=== PATIENT | female | born 2000 ===

== ENCOUNTER 2024-06-16 10:50 | Outpatient (CLI) ==
[~2024-06-16] VITALS: Ht 165.1 cm; Wt 122.0 kg
[2024-06-16 11:23] VITALS: BP 105/56; O2SAT 96
[2024-06-16] MEDS ORDERED: PRENTAB9 PO (11:33)
[2024-06-16] MEDS ORDERED: ZOFRAN PO (11:35)
[2024-06-16] MEDS ORDERED: diphenhydrAMINE 25MG CAP PO PRN (12:00)
[2024-06-16] MEDS ORDERED: OXYTOCIN DRIP 30 UNITS in IV 1 EA IV PRN (12:00)
[2024-06-16] MEDS ORDERED: TRANEXAMIC ACID INJection 1,000 MG in NS 100 ML IV PRN (12:00)
[2024-06-16] MEDS ORDERED: OXYTOCIN INJ 10UNITS/ML 1ML VIAL IM PRN (12:00)
[2024-06-16] MEDS ORDERED: ACETAMINOPHEN 325 MG TAB PO PRN (12:00)
[2024-06-16] MEDS ORDERED: DOCUSATE SODIUM 100MG CAPSULE PO PRN (12:00)
[2024-06-16] MEDS ORDERED: ONDANSETRON 4MG 2ML VIAL IV PRN (12:00)
[2024-06-16] MEDS ORDERED: LIDOCAINE 1% MDV 20ML VIAL INFIL PRN (12:00)
[2024-06-16] MEDS ORDERED: METHYLERGONOVINE MALEATE 0.2MG/ML 1ML VIAL IM PRN (12:00)
[2024-06-16] MEDS ORDERED: CARBOPROST TROMETHAMINE 250 MCG/ML AMP IM PRN (12:00)
[2024-06-16 12:02] VITALS: BP 91/55
[2024-06-16] MEDS ORDERED: BETAMETHASONE SOLUSPAN 6MG/ML 5ML VIAL IM SCH (12:30)
[2024-06-16] MEDS ORDERED: BETAMETHASONE SOLUSPAN 6MG/ML 5ML VIAL IM ONE (12:30)
[2024-06-16 15:19] VITALS: BP 98/56
[2024-06-16 21:04] VITALS: BP 97/52
[2024-06-17] MEDS: BETAMETHASONE SOLUSPAN 6MG/ML 5ML VIAL IM ONE (08:40)
== END 2024-06-17 13:30 | disposition home or self-care (01) ==
LOC: M LDO 10:50
PROVIDERS: ATTEND Advanced Practice Midwife
DX: O47.03 False labor before 37 completed weeks of gestation, third trimester (principal); O26.853 Spotting complicating pregnancy, third trimester; O26.23 Pregnancy care for patient with recurrent pregnancy loss, third trimester; O99.343 Other mental disorders complicating pregnancy, third trimester; O99.810 Abnormal glucose complicating pregnancy; F41.9 Anxiety disorder, unspecified; F32.A Depression, unspecified; F31.9 Bipolar disorder, unspecified; Z3A.35 35 weeks gestation of pregnancy
CPT/HCPCS: 59025; 76815; 87081; 96372; G0463; J0702